=== PATIENT | male | born 1975 | race Caucasian/White ===

== ENCOUNTER 2020-09-13 08:33 | Emergency (ER) | payer OTHER ==
[~2020-09-13] VITALS: Ht 203.2 cm; Wt 204.1 kg
[2020-09-13 08:37] VITALS: BP 136/78
--- NOTE | 2020-09-13 08:47 | NUR ---
[facility]: RIGHT EYE 20/25, LEFT EYE 20/40, BOTH EYES 20/25
--- NOTE | 2020-09-13 08:49 | NUR ---
Pt ambulated to ER bed 12 RN at bedside for evaluation.
--- NOTE | 2020-09-13 08:51 | NUR ---
Dr. Plummer is evaluating the patient at bedside.
[2020-09-13] MEDS ORDERED: NACL 0.9% 1,000 ML IV SCH (08:55)
--- NOTE | 2020-09-13 09:30 | NUR ---
45 MALE WITH C/O WEAKNESS, DIZZINESS, BLLURRY VISION , RIGHT FLANK PAIN X YESTERDAY. 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 PT STATES "HE FEELS DIZZY AND HAS PAIN IN HIS R FLANK." +N/-V X1 DAY PMH:DM, HTN, SLEEP APNEA NKA
--- NOTE | 2020-09-13 09:45 | NUR ---
LAB BESIDE WITH PT
--- NOTE | 2020-09-13 09:58 | NUR ---
PT RESTING IN BED CURRENTLY
[2020-09-13 10:00] LABS: BASOPHILS # (AUTO) 0.1 K/uL (0.00-0.22); EOSINOPHILS % (AUTO) 0.3 % (0.0-4.0); HEMOGLOBIN 12.7 g/dL (12.0-18.0); LYMPHOCYTES # (AUTO) 1.7 K/uL (2.0-11.5); LYMPHOCYTES % (AUTO) 20.1 % (20.5-51.1); MEAN CORPUSCULAR HEMOGLOBIN 31 pg (27-31); MEAN CORPUSCULAR HGB CONC 33 g/dL (33-37); MEAN CORPUSCULAR VOLUME 92.9 fL (80-94); MONOCYTES # (AUTO) 0.8 K/uL (0.8-1.0); MONOCYTES % (AUTO) 9.6 % (1.7-9.3); NEUTROPHILS # (AUTO) 5.8 K/uL (1.8-7.7); PLATELET COUNT (AUTO) 147 K/uL (140-450); RED BLOOD CELL COUNT(AUTO) 4.09 MIL/uL (4.20-6.10); RED CELL DISTRIBUTION WIDTH 15.5 % (11.6-13.7); WHITE BLOOD COUNT (AUTO) 8.4 K/uL (4.8-10.8)
[2020-09-13 10:11] LABS: ALBUMIN 3.3 g/dL (3.4-5.0); ANION GAP 9.2 (8-16); CARBON DIOXIDE 29.7 mmol/L (21-32); CREATININE 1.3 mg/dL (0.6-1.3); POTASSIUM 3.9 mmol/L (3.5-5.1); TOTAL BILIRUBIN 0.7 mg/dL (0.0-1.0)
--- NOTE | 2020-09-13 10:18 | NUR ---
Dr. Plummer is evaluating the patient at bedside.
--- NOTE | 2020-09-13 10:27 | NUR ---
[facility] SWAB TAKEN BEDSIDE. SWAB WALKED OVER TO LAB
[2020-09-13] MEDS ORDERED: KETOROLAC 30 MG/ML VIAL ONE (10:29)
[2020-09-13] MEDS ORDERED: KETOROLAC 30 MG/ML VIAL IVP ONE (10:30)
[2020-09-13 10:34] LABS: CKMB RELATIVE INDEX 0.8 (0.0-2.5); CREATINE KINASE MB 2.5 ng/mL (0-3.6)
[2020-09-13 10:44] VITALS: BP 136/78
--- NOTE | 2020-09-13 10:45 | NUR ---
Patient discharged with v/s stable. Written and verbal after care instructions given and explained. Patient verbalized understanding. Ambulatory with steady gait. All questions addressed prior to discharge. Advised to follow up with PMD.
== END 2020-09-13 10:47 | disposition home or self-care (01) ==
LOC: MED 08:33
DX: R42 Dizziness and giddiness (principal); Z20.822 Contact with and (suspected) exposure to COVID-19; M79.10 Myalgia, unspecified site; R11.0 Nausea; E11.9 Type 2 diabetes mellitus without complications; I10 Essential (primary) hypertension; Z98.890 Other specified postprocedural states
CPT/HCPCS: 36415; 80053; 81002; 82550; 82553; 83690; 85025; 96361; 96374; 99283; J1885; J7030; U0003